=== PATIENT | male | born 1985 | race Caucasian/White ===

== ENCOUNTER → 2016-10-10 | Outpatient (CLI) | payer OTHER ==
--- NOTE | 2016-10-12 10:53 | RADIOLOGY REPORT (SQ) ---
EXAM DESCRIPTION: MRI RT LOWER EXTREMITY COMBO COMPLETED DATE/TIME: 10/10/2016 7:42 pm REASON FOR STUDY: LOCALIZED ENLARGED LYMPH NODES, MASS OF KNEE M25.869 OTHER SPECIFIED JOINT DISOR DERS, UNSPECIFIED KNEE COMPARISON: Right knee films 03/21/2016 TECHNIQUE: Rightknee images acquired and stored on PACS. Multiplanar images include fat sensitive s equences as T1, water sensitive sequences as FST2 or STIR, cartilage sensitive sequences as FSPD, and gradient echo sequences. Study was performed without and with contrast. Postcontrast sagittal coronal and axial images were p erformed. Patient was injected with 15 mL of IV ProHance gadolinium. Estimated GFR not required due to age. LIMITATIONS: None. FINDINGS: JOINT AND BURSAE: No significant suprapatellar knee joint effusion. BONE CORTEX AND MARROW: No alteration of signal to suggest marrow replacement. No worrisome bone lesi ons. No occult fracture. ACL: Intact. No degeneration or ganglion cyst. PCL: Intact. MCL: Intact. No periligamentous edema or fluid. LCL: Intact. No periligamentous edema or fluid. MEDIAL MENISCUS: No tears. No abnormal signal. LATERAL MENISCUS: No tears. No abnormal signal. MEDIAL COMPARTMENT: Cartilage preserved. No bone bruises or reactive marrow edema. No osteophytes. LATERAL COMPARTMENT: Cartilage preserved. No bone bruises or reactive marrow edema. No osteophytes. PATELLA: No chondromalacia. No subchondral cysts. Medial and lateral retinacula intact. EXTENSOR MECHANISM: Intact. Quadriceps and patella tendons normal. SOFT TISSUES: Adjacent muscles and subcutaneous tissues normal. Normal flow void in popliteal artery and vein. Patient indicates a palpable abnormality along the anterior knee soft tissues just superi or to the patella. There is very mild bony spurring along the superior patella at the quadriceps ten don attachment, best shown on coronal image 5. No focal soft tissue mass. No synovial mass. Shannen ceps tendon intact. Patellar bone marrow intact. OTHER: No other significant finding. IMPRESSION: No worrisome masses or enhancement along the anterior right knees suprapatellar soft tis sues. Underlying quadriceps tendon is intact. No knee joint internal derangement identified TECHNICAL DOCUMENTATION: JOB ID: [id number] All Rights Reserved
== END ==
LOC: RAD 18:40
PROVIDERS: ATTEND Specialist
DX: M25.861 Other specified joint disorders, right knee (principal)